=== PATIENT | female | born 1950 | race Caucasian/White ===

== ENCOUNTER 2024-08-10 14:17 | Outpatient (RCR) | payer OTHER, SELFPAY ==
[2024-08-10 14:30] VITALS: BP 140/88
[2024-08-10] MEDS: RECLAST 100 IV (14:39)
[2024-08-10 15:16] VITALS: BP 98/60
== END 2024-08-11 09:25 | disposition home or self-care (01) ==
LOC: OID 14:17
PROVIDERS: ATTENDING PHYSICIAN Nurse Practitioner Family; FAMILY PHYSICIAN Family Medicine
DX: M81.0 Age-related osteoporosis without current pathological fracture (principal)
CPT/HCPCS: 96365; J3489